=== PATIENT | male | born 1965 | race Caucasian/White ===

== ENCOUNTER 2017-10-20 22:10 | Inpatient (IN) | payer MEDICARE, MEDICAID ==
[~2017-10-20] VITALS: Ht 175.3 cm; Wt 107.8 kg
[~2017-10-20 22:10] MED LIST: ISON100L PO; NALT50TA6 PO; OLAN10TA22 PO; SIMV10TA2 PO
[2017-10-20 22:51] VITALS: BP 143/92
[2017-10-20] MEDS ORDERED: -PHARMACY VACCINE NOTE- MISC ONE ×2 (23:00)
[2017-10-20] MEDS ORDERED: PNEUMOCOCCAL VACCINE POLYVALENT 0.5 ML VIAL [PPSV23] IM ONE (23:00)
[2017-10-20] MEDS ORDERED: INFLUENZA VIRUS VACCINE QVS 2017-18 (3YR+)/PF 60 MCG/0.5 ML SYRINGE IM ONE (23:00)
[2017-10-21 00:37] VITALS: BP 142/81
[2017-10-21] MEDS: ZOLPIDEM TARTRATE 10 MG TABLET PO PRN (01:01)
[2017-10-21 08:20] LABS: BASOPHILS % (AUTO) 0.4 % (0.0-2.0); EOSINOPHILS % (AUTO) 1.8 % (1.0-6.0); HEMATOCRIT 43.1 % (41-53); HEMOGLOBIN 14.9 g/dL (13.5-17.5); LYMPHOCYTES # (AUTO) 3.5 K/uL (1.0-4.8); LYMPHOCYTES % (AUTO) 45.5 % (22.0-44.0); MEAN CORPUSCULAR HEMOGLOBIN 33.2 pg (26.0-34.0); MEAN CORPUSCULAR HGB CONC 34.6 G/dL (31.0-37.0); MEAN CORPUSCULAR VOLUME 96 fL (80-100); MONOCYTES # (AUTO) 0.6 K/uL (0.1-1.0); MONOCYTES % (AUTO) 7.8 % (2.0-9.0); NEUTROPHILS # (AUTO) 3.4 K/uL (1.8-7.7); NEUTROPHILS % (AUTO) 44.5 % (40.0-70.0); PLATELET COUNT (AUTO) 223 K/uL (150-450); RED BLOOD CELL COUNT(AUTO) 4.49 MIL/uL (4.50-5.90); RED CELL DISTRIBUTION WIDTH 13.3 % (11.5-14.5); WHITE BLOOD COUNT (AUTO) 7.7 K/uL (4.5-11.0)
[2017-10-21] MEDS: LORazepam 2 MG TABLET PO PRN ×2 (08:29→16:55)
[2017-10-21 08:30] VITALS: BP 131/77
[2017-10-21 08:39] LABS: ALANINE AMINOTRANSFERASE 35 U/L (12-78); ALBUMIN 3.4 g/dL (3.4-5.0); ANION GAP 8 mmol/L (8-16); ASPARTATE AMINOTRANSFERASE 20 U/L (15-37); BILIRUBIN,TOTAL 0.4 mg/dL (0.1-1.0); CALCIUM, TOTAL 8.8 mg/dL (8.8-10.5); CARBON DIOXIDE 29 mmol/L (22-29); CHLORIDE 104 mmol/L (98-107); CREATININE 1.08 mg/dL (0.60-1.30); GLOMERULAR FILTR. RATE CALC > 60 mL/min (>60); POTASSIUM 3.4 mmol/L (3.5-5.1); SODIUM SERUM 141 mmol/L (136-145); TOTAL PROTEIN, SERUM 5.8 g/dL (6.4-8.2); UREA NITROGEN, BLOOD 17 mg/dL (7-18)
[2017-10-21] MEDS ORDERED: ISONIAZID 300 MG TABLET PO SCH (09:00)
[2017-10-21] MEDS ORDERED: POTASSIUM CHLORIDE 20 MEQ ER TABLET PO ONE ×2 (09:45→18:30)
[2017-10-21] MEDS: PYRIDOXINE HCL 50 MG TABLET PO SCH (12:42)
[2017-10-21] MEDS: ISONIAZID 300 MG TABLET PO SCH (12:43)
[2017-10-21 16:19] VITALS: BP 129/80
[2017-10-21] MEDS: OLANZapine 10 MG RAPDIS TABLET PO SCH (20:33)
[2017-10-22 00:21] VITALS: BP 129/84
[2017-10-22] MEDS: PYRIDOXINE HCL 50 MG TABLET PO SCH (08:14)
[2017-10-22] MEDS: NALTREXONE HCL 50 MG TABLET PO SCH (08:15)
[2017-10-22] MEDS: ISONIAZID 300 MG TABLET PO SCH (08:15)
[2017-10-22] MEDS: LORazepam 2 MG TABLET PO PRN (08:20)
[2017-10-22 08:25] VITALS: BP 133/84
[2017-10-22 16:09] VITALS: BP 119/72
[2017-10-22] MEDS: OLANZapine 10 MG RAPDIS TABLET PO SCH (20:30)
[2017-10-22] MEDS: ZOLPIDEM TARTRATE 10 MG TABLET PO PRN (21:16)
[2017-10-23 00:53] VITALS: BP 129/72
[2017-10-23 06:22] VITALS: BP 140/98
[2017-10-23] MEDS: LORazepam 2 MG TABLET PO PRN ×2 (06:28→18:37)
[2017-10-23 08:34] VITALS: BP 105/66
[2017-10-23] MEDS: NALTREXONE HCL 50 MG TABLET PO SCH (09:06)
[2017-10-23] MEDS: ISONIAZID 300 MG TABLET PO SCH (09:06)
[2017-10-23] MEDS: PYRIDOXINE HCL 50 MG TABLET PO SCH (09:06)
[2017-10-23 16:16] VITALS: BP 134/87
[2017-10-23] MEDS: OLANZapine 10 MG RAPDIS TABLET PO SCH (20:18)
[2017-10-24 02:18] VITALS: BP 126/61
[2017-10-24 08:43] VITALS: BP 132/75
[2017-10-24 08:49] LABS: ANION GAP 8 mmol/L (8-16); CALCIUM, TOTAL 9.3 mg/dL (8.8-10.5); CARBON DIOXIDE 27 mmol/L (22-29); CHLORIDE 105 mmol/L (98-107); CHOL/HDL RATIO 4.8 (4.2-7.3); CREATINE KINASE, TOTAL 63 U/L (39-308); CREATININE 1.19 mg/dL (0.60-1.30); GLOMERULAR FILTR. RATE CALC > 60 mL/min (>60); POTASSIUM 3.4 mmol/L (3.5-5.1); SODIUM SERUM 140 mmol/L (136-145); UREA NITROGEN, BLOOD 14 mg/dL (7-18)
[2017-10-24] MEDS: PYRIDOXINE HCL 50 MG TABLET PO SCH (09:00)
[2017-10-24] MEDS: ISONIAZID 300 MG TABLET PO SCH (09:00)
[2017-10-24] MEDS: NALTREXONE HCL 50 MG TABLET PO SCH (09:00)
[2017-10-24] MEDS ORDERED: POTASSIUM CHLORIDE 20 MEQ ER TABLET PO ONE (14:00)
[2017-10-24 16:15] VITALS: BP 134/96
[2017-10-24] MEDS: OLANZapine 10 MG RAPDIS TABLET PO SCH (20:32)
[2017-10-24] MEDS: ZOLPIDEM TARTRATE 10 MG TABLET PO PRN (20:57)
[2017-10-25 00:27] VITALS: BP 124/83
[2017-10-25 08:00] VITALS: BP 127/69
[2017-10-25] MEDS: PYRIDOXINE HCL 50 MG TABLET PO SCH (09:20)
[2017-10-25] MEDS: NALTREXONE HCL 50 MG TABLET PO SCH (09:20)
[2017-10-25] MEDS: ISONIAZID 300 MG TABLET PO SCH (09:20)
[2017-10-25] MEDS: LORazepam 2 MG TABLET PO PRN (14:47)
[2017-10-25 16:43] VITALS: BP 115/66
[2017-10-25] MEDS: OLANZapine 10 MG RAPDIS TABLET PO SCH (20:34)
[2017-10-26 00:10] VITALS: BP 106/66
[2017-10-26 08:14] VITALS: BP 132/77
[2017-10-26 08:49] LABS: ANION GAP 7 mmol/L (8-16); CALCIUM, TOTAL 9.4 mg/dL (8.8-10.5); CARBON DIOXIDE 30 mmol/L (22-29); CHLORIDE 106 mmol/L (98-107); CREATINE KINASE, TOTAL 60 U/L (39-308); CREATININE 1.19 mg/dL (0.60-1.30); GLOMERULAR FILTR. RATE CALC > 60 mL/min (>60); POTASSIUM 4.8 mmol/L (3.5-5.1); SODIUM SERUM 143 mmol/L (136-145); UREA NITROGEN, BLOOD 14 mg/dL (7-18)
[2017-10-26] MEDS: NALTREXONE HCL 50 MG TABLET PO SCH (09:07)
[2017-10-26] MEDS: PYRIDOXINE HCL 50 MG TABLET PO SCH (09:07)
[2017-10-26] MEDS: ISONIAZID 300 MG TABLET PO SCH (09:07)
[2017-10-26 16:09] VITALS: BP 133/84
[2017-10-26] MEDS ORDERED: PYRI50 PO (17:06)
== END 2017-10-26 18:30 | disposition home or self-care (01) | DRG 885 ==
LOC: B2X 22:48
PROVIDERS: ADMIT Psychiatry & Neurology Child & Adolescent Psychiatry; ATTEND Psychiatry & Neurology Child & Adolescent Psychiatry
DX: F25.1 Schizoaffective disorder, depressive type (principal); R45.851 Suicidal ideations; E55.9 Vitamin D deficiency, unspecified; F15.90 Other stimulant use, unspecified, uncomplicated; E66.3 Overweight; E78.5 Hyperlipidemia, unspecified; E87.6 Hypokalemia; F41.9 Anxiety disorder, unspecified; I10 Essential (primary) hypertension; R76.11 Nonspecific reaction to tuberculin skin test without active tuberculosis; Z82.49 Family history of ischemic heart disease and other diseases of the circulatory system
CPT/HCPCS: 82306; 82607; 82746; 83735; 84132

== ENCOUNTER 2017-10-29 18:51 | Inpatient (IN) | payer MEDICARE, MEDICAID ==
[~2017-10-29] VITALS: Ht 175.3 cm; Wt 108.4 kg
[~2017-10-29 18:51] MED LIST changes: +PYRI50 PO; -SIMV10TA2 PO
[2017-10-29] MEDS ORDERED: ISON300 PO (19:21)
[2017-10-29] MEDS ORDERED: INFLUENZA VIRUS VACCINE QVS 2017-18 (3YR+)/PF 60 MCG/0.5 ML SYRINGE IM ONE (20:15)
[2017-10-29 20:52] VITALS: BP 139/88
[2017-10-29] MEDS: ZOLPIDEM TARTRATE 10 MG TABLET PO PRN (21:56)
[2017-10-30 02:05] VITALS: BP 123/81
[2017-10-30] MEDS: LORazepam 2 MG TABLET PO PRN ×2 (04:31→10:08)
[2017-10-30 08:41] LABS: HEMOGLOBIN A1C 5.9 % (4.5-6.2)
[2017-10-30 08:43] LABS: BASOPHILS % (AUTO) 0.4 % (0.0-2.0); EOSINOPHILS % (AUTO) 1.3 % (1.0-6.0); HEMATOCRIT 42.9 % (41-53); HEMOGLOBIN 14.5 g/dL (13.5-17.5); LYMPHOCYTES # (AUTO) 2.7 K/uL (1.0-4.8); LYMPHOCYTES % (AUTO) 46.2 % (22.0-44.0); MEAN CORPUSCULAR HEMOGLOBIN 32.9 pg (26.0-34.0); MEAN CORPUSCULAR HGB CONC 33.9 G/dL (31.0-37.0); MEAN CORPUSCULAR VOLUME 97 fL (80-100); MONOCYTES # (AUTO) 0.6 K/uL (0.1-1.0); MONOCYTES % (AUTO) 9.8 % (2.0-9.0); NEUTROPHILS # (AUTO) 2.5 K/uL (1.8-7.7); NEUTROPHILS % (AUTO) 42.3 % (40.0-70.0); PLATELET COUNT (AUTO) 217 K/uL (150-450); RED BLOOD CELL COUNT(AUTO) 4.43 MIL/uL (4.50-5.90); RED CELL DISTRIBUTION WIDTH 13.3 % (11.5-14.5); WHITE BLOOD COUNT (AUTO) 5.9 K/uL (4.5-11.0)
[2017-10-30 08:50] VITALS: BP 128/75
[2017-10-30 09:09] LABS: ALANINE AMINOTRANSFERASE 28 U/L (12-78); ALBUMIN 3.4 g/dL (3.4-5.0); ANION GAP 5 mmol/L (8-16); ASPARTATE AMINOTRANSFERASE 13 U/L (15-37); BILIRUBIN,TOTAL 0.3 mg/dL (0.1-1.0); CALCIUM, TOTAL 9.1 mg/dL (8.8-10.5); CARBON DIOXIDE 30 mmol/L (22-29); CHLORIDE 105 mmol/L (98-107); CREATININE 1.08 mg/dL (0.60-1.30); GLOMERULAR FILTR. RATE CALC > 60 mL/min (>60); POTASSIUM 4.3 mmol/L (3.5-5.1); SODIUM SERUM 140 mmol/L (136-145); THYROID STIMULATING HORMONE 1.37 uIU/mL (0.36-3.74); TOTAL PROTEIN, SERUM 6.3 g/dL (6.4-8.2); UREA NITROGEN, BLOOD 10 mg/dL (7-18)
[2017-10-30] MEDS: CHOLECALCIFEROL (VIT D3) 1,000 UNITS TABLET PO SCH (09:29)
[2017-10-30] MEDS: NICOTINE 21 MG/24 HOUR PATCH TD SCH (09:29)
[2017-10-30] MEDS: NALTREXONE HCL 50 MG TABLET PO SCH (14:49)
[2017-10-30] MEDS: PYRIDOXINE HCL 50 MG TABLET PO SCH (15:44)
[2017-10-30] MEDS: ISONIAZID 300 MG TABLET PO SCH (15:44)
[2017-10-30 16:03] VITALS: BP 135/81
[2017-10-30] MEDS: OLANZapine 10 MG TABLET PO SCH (20:30)
[2017-10-30] MEDS: ZOLPIDEM TARTRATE 10 MG TABLET PO PRN (21:14)
[2017-10-31] MEDS: LORazepam 2 MG TABLET PO PRN (07:20)
[2017-10-31 08:17] VITALS: BP 134/86
[2017-10-31] MEDS: NALTREXONE HCL 50 MG TABLET PO SCH (08:48)
[2017-10-31] MEDS: PYRIDOXINE HCL 50 MG TABLET PO SCH (08:48)
[2017-10-31] MEDS: CHOLECALCIFEROL (VIT D3) 1,000 UNITS TABLET PO SCH (08:48)
[2017-10-31] MEDS: NICOTINE 21 MG/24 HOUR PATCH TD SCH (08:49)
[2017-10-31] MEDS: ISONIAZID 300 MG TABLET PO SCH (08:49)
[2017-10-31 16:01] VITALS: BP 135/84
[2017-10-31] MEDS: OLANZapine 10 MG TABLET PO SCH (20:05)
[2017-11-01 03:07] VITALS: BP 118/76
[2017-11-01 08:18] VITALS: BP 110/60
[2017-11-01] MEDS: PYRIDOXINE HCL 50 MG TABLET PO SCH (09:47)
[2017-11-01] MEDS: CHOLECALCIFEROL (VIT D3) 1,000 UNITS TABLET PO SCH (09:47)
[2017-11-01] MEDS: ISONIAZID 300 MG TABLET PO SCH (09:47)
[2017-11-01] MEDS: NALTREXONE HCL 50 MG TABLET PO SCH (09:48)
[2017-11-01] MEDS: NICOTINE 21 MG/24 HOUR PATCH TD SCH (09:48)
[2017-11-01] MEDS ORDERED: VITAD1000 PO (11:00)
[2017-11-01] MEDS ORDERED: OLAN10TA3 PO (11:00)
== END 2017-11-01 12:10 | disposition home or self-care (01) | DRG 885 ==
LOC: B2X 19:22
PROVIDERS: ADMIT Psychiatry & Neurology Child & Adolescent Psychiatry; ATTEND Psychiatry & Neurology Child & Adolescent Psychiatry
DX: F25.9 Schizoaffective disorder, unspecified (principal); C85.90 Non-Hodgkin lymphoma, unspecified, unspecified site; E55.9 Vitamin D deficiency, unspecified; E78.5 Hyperlipidemia, unspecified; F32.9 Major depressive disorder, single episode, unspecified; G47.00 Insomnia, unspecified; I10 Essential (primary) hypertension; F15.90 Other stimulant use, unspecified, uncomplicated; Z59.0 Homelessness; F17.200 Nicotine dependence, unspecified, uncomplicated; Z91.14 Patient's other noncompliance with medication regimen
CPT/HCPCS: 83036; 84439; 84443; 87081

== ENCOUNTER 2018-12-02 19:46 | Emergency (ER) | payer MEDICARE, OTHER ==
[~2018-12-02] VITALS: Ht 175.3 cm; Wt 120.5 kg
[~2018-12-02 19:46] MED LIST changes: -ISON100L PO; -NALT50TA6 PO; -OLAN10TA22 PO; +OLAN10TA3 PO; -PYRI50 PO
[2018-12-02 20:19] LABS: BASOPHILS % (AUTO) 0.6 % (0.0-2.0); EOSINOPHILS % (AUTO) 1.1 % (1.0-6.0); HEMATOCRIT 41.8 % (41-53); HEMOGLOBIN 14.3 g/dL (13.5-17.5); LYMPHOCYTES # (AUTO) 2.9 K/uL (1.0-4.8); LYMPHOCYTES % (AUTO) 41.4 % (22.0-44.0); MEAN CORPUSCULAR HEMOGLOBIN 32.9 pg (26.0-34.0); MEAN CORPUSCULAR HGB CONC 34.3 G/dL (31.0-37.0); MEAN CORPUSCULAR VOLUME 96 fL (80-100); MONOCYTES # (AUTO) 0.7 K/uL (0.1-1.0); MONOCYTES % (AUTO) 9.5 % (2.0-9.0); NEUTROPHILS # (AUTO) 3.4 K/uL (1.8-7.7); NEUTROPHILS % (AUTO) 47.4 % (40.0-70.0); PLATELET COUNT (AUTO) 231 K/uL (150-450); RED BLOOD CELL COUNT(AUTO) 4.36 MIL/uL (4.50-5.90); RED CELL DISTRIBUTION WIDTH 13.1 % (11.5-14.5)
[2018-12-02 20:28] LABS: ANION GAP 5 mmol/L (8-16); CARBON DIOXIDE 31 mmol/L (22-29); CHLORIDE 107 mmol/L (98-107); CREATININE 1.08 mg/dL (0.60-1.30); GLOMERULAR FILTR. RATE CALC > 60 mL/min (>60); GLUCOSE,RANDOM 83 mg/dL (70-110); POTASSIUM 3.6 mmol/L (3.5-5.1); SODIUM SERUM 143 mmol/L (136-145); UREA NITROGEN, BLOOD 19 mg/dL (7-18)
[2018-12-02 20:33] LABS: ALANINE AMINOTRANSFERASE 29 U/L (12-78); ALBUMIN 3.7 g/dL (3.4-5.0); ALKALINE PHOSPHATASE 78 U/L (46-116); ASPARTATE AMINOTRANSFERASE 21 U/L (15-37); BILIRUBIN,TOTAL 0.2 mg/dL (0.1-1.0); TOTAL PROTEIN, SERUM 6.4 g/dL (6.4-8.2)
[2018-12-02 20:38] LABS: AMPHET/METH SCREEN,URINE POSITIVE (NEGATIVE); BARBITURATE SCREEN, URINE NEGATIVE (NEGATIVE); BENZODIAZEPINES SCREEN,URINE NEGATIVE (NEGATIVE); CANNABINOID SCREEN,URINE NEGATIVE (NEGATIVE); COCAINE SCREEN,URINE NEGATIVE (NEGATIVE); METHADONE SCREEN, URINE NEGATIVE (NEGATIVE); OPIATE SCREEN,URINE NEGATIVE (NEGATIVE)
[2018-12-02 20:45] LABS: PHENCYCLIDINE SCREEN,URINE NEGATIVE (NEGATIVE)
[2018-12-02 22:10] VITALS: BP 136/80
== END 2018-12-02 22:11 | disposition home or self-care (01) ==
LOC: EMS 19:48
DX: F19.10 Other psychoactive substance abuse, uncomplicated (principal); E78.00 Pure hypercholesterolemia, unspecified; I10 Essential (primary) hypertension; F17.210 Nicotine dependence, cigarettes, uncomplicated; Z59.0 Homelessness; Z79.899 Other long term (current) drug therapy
CPT/HCPCS: 36415; 80053; 80307; 85025; 99283; G0480

== ENCOUNTER 2018-12-29 22:31 | Inpatient (IN) | payer MEDICARE, MEDICAID ==
[~2018-12-29] VITALS: Ht 175.3 cm; Wt 112.5 kg
[2018-12-29 22:57] VITALS: BP 139/82
[2018-12-29] MEDS ORDERED: PNEUMOCOCCAL VACCINE POLYVALENT 0.5 ML VIAL [PPSV23] IM ONE (23:15)
[2018-12-29] MEDS ORDERED: HALOPERIDOL 5 MG TABLET PO PRN (23:15)
[2018-12-29] MEDS ORDERED: LORazepam 2 MG TABLET PO PRN (23:15)
[2018-12-29] MEDS ORDERED: -PHARMACY VACCINE NOTE- MISC ONE (23:15)
[2018-12-30] MEDS: ZOLPIDEM TARTRATE 10 MG TABLET PO PRN (00:04)
[2018-12-30 00:33] VITALS: BP 139/78
[2018-12-30 00:39] VITALS: BP 139/78
[2018-12-30] MEDS ORDERED: ACETAMINOPHEN 325 MG TABLET PO PRN (06:30)
[2018-12-30] MEDS ORDERED: PETROLATUM,WHITE 71 GM JELLY TP PRN (06:30)
[2018-12-30] MEDS ORDERED: IBUPROFEN 400 MG TABLET PO PRN (06:30)
[2018-12-30] MEDS ORDERED: MAGNESIUM HYDROXIDE SUSPENSION 30 ML UDCUP PO PRN (06:30)
[2018-12-30] MEDS ORDERED: NICOTINE 14 MG/24 HOUR PATCH TD PRN (06:30)
[2018-12-30] MEDS ORDERED: LOPERAMIDE HCL 2 MG CAPSULE PO PRN (06:30)
[2018-12-30] MEDS ORDERED: CloNIDine HCL 0.1 MG TABLET PO PRN (06:30)
[2018-12-30] MEDS ORDERED: ONDANSETRON HCL 4 MG TABLET PO PRN (06:30)
[2018-12-30] MEDS ORDERED: MAG HYDROX/AL HYDROX/SIMETH ES 30 ML SUSPENSION UDCUP PO PRN (06:30)
[2018-12-30] MEDS ORDERED: DOCUSATE SODIUM 100 MG CAPSULE PO PRN (06:30)
[2018-12-30] MEDS ORDERED: ALBUTEROL SULFATE HFA 90 MCG/PUFF 8 GM INHALER IH PRN (06:30)
[2018-12-30] MEDS ORDERED: GuaiFENesin/D-METHORPHAN [SUGAR-FREE] 200-20MG/10 ML SYRUP UDCUP PO PRN (06:30)
[2018-12-30 07:54] LABS: BASOPHILS % (AUTO) 0.4 % (0.0-2.0); EOSINOPHILS % (AUTO) 2.2 % (1.0-6.0); HEMATOCRIT 41.8 % (41-53); HEMOGLOBIN 14.4 g/dL (13.5-17.5); LYMPHOCYTES # (AUTO) 2.9 K/uL (1.0-4.8); LYMPHOCYTES % (AUTO) 49.2 % (22.0-44.0); MEAN CORPUSCULAR HEMOGLOBIN 33.1 pg (26.0-34.0); MEAN CORPUSCULAR HGB CONC 34.6 G/dL (31.0-37.0); MEAN CORPUSCULAR VOLUME 96 fL (80-100); MONOCYTES # (AUTO) 0.7 K/uL (0.1-1.0); MONOCYTES % (AUTO) 11.9 % (2.0-9.0); NEUTROPHILS # (AUTO) 2.1 K/uL (1.8-7.7); NEUTROPHILS % (AUTO) 36.3 % (40.0-70.0); PLATELET COUNT (AUTO) 228 K/uL (150-450); RED BLOOD CELL COUNT(AUTO) 4.37 MIL/uL (4.50-5.90); RED CELL DISTRIBUTION WIDTH 13.2 % (11.5-14.5)
[2018-12-30 08:04] VITALS: BP 138/78
[2018-12-30 08:33] LABS: ALANINE AMINOTRANSFERASE 39 U/L (12-78); ALBUMIN 3.4 g/dL (3.4-5.0); ALKALINE PHOSPHATASE 79 U/L (46-116); ANION GAP 5 mmol/L (8-16); ASPARTATE AMINOTRANSFERASE 27 U/L (15-37); BILIRUBIN,TOTAL 0.3 mg/dL (0.1-1.0); CALCIUM, TOTAL 8.5 mg/dL (8.8-10.5); CARBON DIOXIDE 30 mmol/L (22-29); CHLORIDE 105 mmol/L (98-107); CHOL/HDL RATIO 4.6 (4.2-7.3); CHOLESTEROL 178 mg/dL (131-200); CREATININE 1.13 mg/dL (0.60-1.30); FREE T4 (FREE THYROXINE) 0.96 ng/dL (0.76-1.46); GLOMERULAR FILTR. RATE CALC > 60 mL/min (>60); GLUCOSE,RANDOM 95 mg/dL (70-110); HDL CHOLESTEROL 39 mg/dL (40-60); LDL CHOL (CALC.) 123 mg/dL (0-130); POTASSIUM 4.1 mmol/L (3.5-5.1); SODIUM SERUM 140 mmol/L (136-145); THYROID STIMULATING HORMONE 1.21 uIU/mL (0.36-3.74); TOTAL PROTEIN, SERUM 5.8 g/dL (6.4-8.2); TRIGLYCERIDES 78 mg/dL (15-150); UREA NITROGEN, BLOOD 15 mg/dL (7-18)
[2018-12-30 08:35] LABS: HEMOGLOBIN A1C 5.9 % (4.5-6.2)
[2018-12-30 16:11] VITALS: BP 140/91
[2018-12-30] MEDS: OLANZapine 10 MG TABLET PO SCH (20:26)
[2018-12-31 04:27] VITALS: BP 119/84
[2018-12-31 08:26] VITALS: BP 131/79
[2018-12-31 16:14] VITALS: BP 134/76
[2018-12-31] MEDS: OLANZapine 10 MG TABLET PO SCH (20:21)
[2019-01-01 03:41] VITALS: BP 12/78
[2019-01-01 08:00] VITALS: BP 131/75
[2019-01-01 19:07] VITALS: BP 130/78
[2019-01-01] MEDS: OLANZapine 10 MG TABLET PO SCH (20:35)
[2019-01-02 00:41] VITALS: BP 126/72
[2019-01-02 08:14] VITALS: BP_SYST 128
[2019-01-02 16:18] VITALS: BP 145/83
[2019-01-02] MEDS: OLANZapine 10 MG TABLET PO SCH (20:34)
[2019-01-02] MEDS: ZOLPIDEM TARTRATE 10 MG TABLET PO PRN (21:14)
[2019-01-03 02:58] VITALS: BP 123/75
[2019-01-03 08:23] VITALS: BP 133/73
== END 2019-01-03 09:45 | disposition home or self-care (01) | DRG 885 ==
LOC: B2X 23:30 → UNDOADMIN 23:30 → B2X 12-30 23:30
PROVIDERS: ADMIT Psychiatry & Neurology Psychiatry; ATTEND Psychiatry & Neurology Psychiatry
DX: F25.0 Schizoaffective disorder, bipolar type (principal); R45.851 Suicidal ideations; E55.9 Vitamin D deficiency, unspecified; E78.5 Hyperlipidemia, unspecified; F10.10 Alcohol abuse, uncomplicated; F17.200 Nicotine dependence, unspecified, uncomplicated; F19.90 Other psychoactive substance use, unspecified, uncomplicated; F41.9 Anxiety disorder, unspecified; I10 Essential (primary) hypertension; R76.11 Nonspecific reaction to tuberculin skin test without active tuberculosis; Z71.41 Alcohol abuse counseling and surveillance of alcoholic; Z71.6 Tobacco abuse counseling; Z59.0 Homelessness; Z86.11 Personal history of tuberculosis
CPT/HCPCS: 83036; 84439; 84443; 87081; 90732

== ENCOUNTER 2019-10-26 12:47 | Inpatient (IN) | payer MEDICARE, MEDICAID ==
[~2019-10-26] VITALS: Ht 175.3 cm; Wt 114.0 kg
[2019-10-26 14:51] VITALS: BP 141/79
[2019-10-26] MEDS ORDERED: HALOPERIDOL 5 MG TABLET PO PRN (15:15)
[2019-10-26] MEDS ORDERED: ZOLPIDEM TARTRATE 10 MG TABLET PO PRN (15:15)
[2019-10-26] MEDS ORDERED: INFLUENZA VIRUS VACCINE QVS 2019-20 (3YR+)/PF 60 MCG/0.5 ML SYRINGE IM ONE (16:45)
[2019-10-26 17:53] VITALS: BP 120/72
[2019-10-26] MEDS: LORazepam 2 MG TABLET PO PRN ×2 (19:43→19:56)
[2019-10-27 00:08] VITALS: BP 106/73
[2019-10-27 08:07] VITALS: BP 119/74
[2019-10-27 08:22] LABS: BASOPHILS % (AUTO) 0.4 % (0.0-2.0); EOSINOPHILS % (AUTO) 1.1 % (1.0-6.0); HEMATOCRIT 44.5 % (41-53); LYMPHOCYTES # (AUTO) 2.6 K/uL (1.0-4.8); LYMPHOCYTES % (AUTO) 44.5 % (22.0-44.0); MEAN CORPUSCULAR HEMOGLOBIN 32.6 pg (26.0-34.0); MEAN CORPUSCULAR HGB CONC 33.7 G/dL (31.0-37.0); MEAN CORPUSCULAR VOLUME 97 fL (80-100); MONOCYTES # (AUTO) 0.6 K/uL (0.1-1.0); MONOCYTES % (AUTO) 9.8 % (2.0-9.0); NEUTROPHILS # (AUTO) 2.6 K/uL (1.8-7.7); NEUTROPHILS % (AUTO) 44.2 % (40.0-70.0); PLATELET COUNT (AUTO) 244 K/uL (150-450); RED CELL DISTRIBUTION WIDTH 13.6 % (11.5-14.5)
[2019-10-27 08:29] LABS: BILIRUBIN,URINE NEGATIVE (NEGATIVE); GLUCOSE, URINE (UA) NEGATIVE (NEGATIVE); KETONES,URINE NEGATIVE (NEGATIVE); LEUKOCYTE ESTERASE ,URINE NEGATIVE (NEGATIVE); NITRATE,URINE NEGATIVE (NEGATIVE); OCCULT BLOOD,URINE NEGATIVE (NEGATIVE); PROTEIN,URINE NEGATIVE (NEGATIVE)
[2019-10-27 08:35] LABS: APPEARANCE,URINE TURBID (CLEAR)
[2019-10-27 08:36] LABS: AMPHET/METH SCREEN,URINE POSITIVE (NEGATIVE); BARBITURATE SCREEN, URINE NEGATIVE (NEGATIVE); BENZODIAZEPINES SCREEN,URINE NEGATIVE (NEGATIVE); CANNABINOID SCREEN,URINE NEGATIVE (NEGATIVE); COCAINE SCREEN,URINE NEGATIVE (NEGATIVE); METHADONE SCREEN, URINE NEGATIVE (NEGATIVE); OPIATE SCREEN,URINE NEGATIVE (NEGATIVE); PHENCYCLIDINE SCREEN,URINE NEGATIVE (NEGATIVE)
[2019-10-27 08:36] LABS: HEMOGLOBIN A1C 5.5 % (4.5-6.2)
[2019-10-27 08:49] LABS: ALBUMIN 3.5 g/dL (3.4-5.0); BILIRUBIN,TOTAL 0.6 mg/dL (0.1-1.0); CALCIUM, TOTAL 8.5 mg/dL (8.8-10.5); CHOL/HDL RATIO 5.4 (4.2-7.3); CREATININE 1.33 mg/dL (0.60-1.30); FREE T4 (FREE THYROXINE) 1.27 ng/dL (0.76-1.46); POTASSIUM 3.8 mmol/L (3.5-5.1); THYROID STIMULATING HORMONE 1.77 uIU/mL (0.36-3.74); TOTAL PROTEIN, SERUM 6.3 g/dL (6.4-8.2)
[2019-10-27] MEDS ORDERED: BENZOCAINE/MENTHOL LOZENGE MM PRN (16:00)
[2019-10-27] MEDS ORDERED: PETROLATUM,WHITE 28 GM JELLY TP PRN (16:00)
[2019-10-27] MEDS ORDERED: MAG HYDROX/AL HYDROX/SIMETH ES 30 ML SUSPENSION UDCUP PO PRN (16:00)
[2019-10-27] MEDS ORDERED: MAGNESIUM HYDROXIDE SUSPENSION 30 ML UDCUP PO PRN (16:00)
[2019-10-27] MEDS ORDERED: LOPERAMIDE HCL 2 MG CAPSULE PO PRN (16:00)
[2019-10-27] MEDS ORDERED: BACITRACIN 28.4 GM OINTMENT TP PRN (16:00)
[2019-10-27] MEDS ORDERED: ONDANSETRON HCL 4 MG TABLET PO PRN (16:00)
[2019-10-27] MEDS ORDERED: DOCUSATE SODIUM 100 MG CAPSULE PO PRN (16:00)
[2019-10-27] MEDS ORDERED: ACETAMINOPHEN 325 MG TABLET PO PRN (16:00)
[2019-10-27] MEDS ORDERED: IBUPROFEN 600 MG TABLET PO PRN (16:00)
[2019-10-27] MEDS ORDERED: ALBUTEROL SULFATE HFA 90 MCG/PUFF 8 GM INHALER IH PRN (16:00)
[2019-10-27] MEDS ORDERED: OMEPRAZOLE 20 MG CAPSULE PO PRN (16:00)
[2019-10-27] MEDS ORDERED: CloNIDine HCL 0.1 MG TABLET PO PRN (16:00)
[2019-10-27 16:11] VITALS: BP 113/60
[2019-10-27] MEDS: LORazepam 2 MG TABLET PO PRN (16:46)
[2019-10-28 06:19] VITALS: BP 109/69
[2019-10-28 08:33] VITALS: BP 109/58
[2019-10-28 16:04] VITALS: BP 131/71
[2019-10-28] MEDS: OLANZapine 10 MG TABLET PO SCH (20:04)
[2019-10-29 06:10] VITALS: BP 127/65
[2019-10-29 08:19] VITALS: BP 122/90
[2019-10-29 16:07] VITALS: BP 140/86
[2019-10-29] MEDS: LORazepam 2 MG TABLET PO PRN (17:33)
[2019-10-29] MEDS: OLANZapine 10 MG TABLET PO SCH (20:34)
[2019-10-30 00:10] VITALS: BP 111/73
[2019-10-30] MEDS: NICOTINE 21 MG/24 HOUR PATCH TD SCH (08:18)
[2019-10-30 08:28] VITALS: BP 138/80
[2019-10-30] MEDS: LORazepam 2 MG TABLET PO PRN (14:25)
[2019-10-30 16:52] VITALS: BP 127/86
[2019-10-30] MEDS: OLANZapine 10 MG TABLET PO SCH (20:46)
[2019-10-31 05:36] VITALS: BP 133/83
[2019-10-31] MEDS: NICOTINE 21 MG/24 HOUR PATCH TD SCH (08:49)
[2019-10-31 16:24] VITALS: BP 128/90
[2019-10-31] MEDS: LORazepam 2 MG TABLET PO PRN (19:07)
[2019-10-31] MEDS: OLANZapine 10 MG TABLET PO SCH (20:10)
[2019-11-01 00:10] VITALS: BP 124/63
[2019-11-01 08:16] VITALS: BP 134/90
[2019-11-01] MEDS: NICOTINE 21 MG/24 HOUR PATCH TD SCH (08:24)
[2019-11-01] MEDS: LORazepam 2 MG TABLET PO PRN (09:50)
[2019-11-01] MEDS ORDERED: OLAN10TA3 PO (12:38)
== END 2019-11-01 14:45 | disposition home or self-care (01) | DRG 885 ==
LOC: B2X 15:06
PROVIDERS: ADMIT Psychiatry & Neurology Psychiatry; ATTEND Psychiatry & Neurology Psychiatry
DX: F25.1 Schizoaffective disorder, depressive type (principal); F15.10 Other stimulant abuse, uncomplicated; E55.9 Vitamin D deficiency, unspecified; E78.5 Hyperlipidemia, unspecified; F10.10 Alcohol abuse, uncomplicated; F17.200 Nicotine dependence, unspecified, uncomplicated; I10 Essential (primary) hypertension; Z59.0 Homelessness; Z86.15 Personal history of latent tuberculosis infection
CPT/HCPCS: 80307; 83036; 84439; 84443

== ENCOUNTER 2019-11-10 17:04 | Inpatient (IN) | payer MEDICARE, MEDICAID ==
[~2019-11-10] VITALS: Ht 175.3 cm; Wt 112.5 kg
[2019-11-10] MEDS ORDERED: HALOPERIDOL 5 MG TABLET PO PRN (17:30)
[2019-11-10] MEDS ORDERED: ZOLPIDEM TARTRATE 10 MG TABLET PO PRN (17:30)
[2019-11-10] MEDS ORDERED: PNEUMOCOCCAL VACCINE POLYVALENT 0.5 ML VIAL [PPSV23] IM ONE (18:15)
[2019-11-10 20:09] VITALS: BP 138/85
[2019-11-10] MEDS ORDERED: NICOTINE 21 MG/24 HOUR PATCH TD ONE (20:30)
[2019-11-10] MEDS ORDERED: PERMETHRIN 5% 60 GM CREAM TP ONE (20:30)
[2019-11-11] MEDS ORDERED: BENZOCAINE/MENTHOL LOZENGE MM PRN (06:45)
[2019-11-11] MEDS ORDERED: LOPERAMIDE HCL 2 MG CAPSULE PO PRN (06:45)
[2019-11-11] MEDS ORDERED: CloNIDine HCL 0.1 MG TABLET PO PRN (06:45)
[2019-11-11] MEDS ORDERED: MAG HYDROX/AL HYDROX/SIMETH ES 30 ML SUSPENSION UDCUP PO PRN (06:45)
[2019-11-11] MEDS ORDERED: ACETAMINOPHEN 325 MG TABLET PO PRN (06:45)
[2019-11-11] MEDS ORDERED: ALBUTEROL SULFATE HFA 90 MCG/PUFF 8 GM INHALER IH PRN (06:45)
[2019-11-11] MEDS ORDERED: MAGNESIUM HYDROXIDE SUSPENSION 30 ML UDCUP PO PRN (06:45)
[2019-11-11] MEDS ORDERED: BACITRACIN 28.4 GM OINTMENT TP PRN (06:45)
[2019-11-11] MEDS ORDERED: DOCUSATE SODIUM 100 MG CAPSULE PO PRN (06:45)
[2019-11-11] MEDS ORDERED: ONDANSETRON HCL 4 MG TABLET PO PRN (06:45)
[2019-11-11] MEDS ORDERED: IBUPROFEN 600 MG TABLET PO PRN (06:45)
[2019-11-11] MEDS ORDERED: PETROLATUM,WHITE 28 GM JELLY TP PRN (06:45)
[2019-11-11] MEDS ORDERED: OMEPRAZOLE 20 MG CAPSULE PO PRN (06:45)
[2019-11-11 07:32] LABS: BASOPHILS % (AUTO) 0.6 % (0.0-2.0); EOSINOPHILS % (AUTO) 1.3 % (1.0-6.0); HEMATOCRIT 44.6 % (41-53); HEMOGLOBIN 15.3 g/dL (13.5-17.5); LYMPHOCYTES # (AUTO) 2.2 K/uL (1.0-4.8); LYMPHOCYTES % (AUTO) 38.9 % (22.0-44.0); MEAN CORPUSCULAR HEMOGLOBIN 32.8 pg (26.0-34.0); MEAN CORPUSCULAR HGB CONC 34.2 G/dL (31.0-37.0); MEAN CORPUSCULAR VOLUME 96 fL (80-100); MONOCYTES # (AUTO) 0.5 K/uL (0.1-1.0); MONOCYTES % (AUTO) 9.1 % (2.0-9.0); NEUTROPHILS # (AUTO) 2.9 K/uL (1.8-7.7); NEUTROPHILS % (AUTO) 50.1 % (40.0-70.0); PLATELET COUNT (AUTO) 264 K/uL (150-450); RED BLOOD CELL COUNT(AUTO) 4.65 MIL/uL (4.50-5.90); RED CELL DISTRIBUTION WIDTH 13.1 % (11.5-14.5)
[2019-11-11 07:46] LABS: HEMOGLOBIN A1C 5.7 % (4.5-6.2)
[2019-11-11 08:01] LABS: ALANINE AMINOTRANSFERASE 37 U/L (12-78); ALKALINE PHOSPHATASE 90 U/L (46-116); ANION GAP 10 mmol/L (8-16); ASPARTATE AMINOTRANSFERASE 29 U/L (15-37); BILIRUBIN,TOTAL 0.6 mg/dL (0.1-1.0); CALCIUM, TOTAL 8.7 mg/dL (8.8-10.5); CARBON DIOXIDE 26 mmol/L (22-29); CHLORIDE 101 mmol/L (98-107); CHOL/HDL RATIO 4.4 (4.2-7.3); CHOLESTEROL 203 mg/dL (131-200); CREATININE 1.16 mg/dL (0.60-1.30); FREE T4 (FREE THYROXINE) 1.39 ng/dL (0.76-1.46); GLOMERULAR FILTR. RATE CALC > 60 mL/min (>60); GLUCOSE,RANDOM 106 mg/dL (70-110); HDL CHOLESTEROL 46 mg/dL (40-60); LDL CHOL (CALC.) 142 mg/dL (0-130); SODIUM SERUM 137 mmol/L (136-145); THYROID STIMULATING HORMONE 2.14 uIU/mL (0.36-3.74); TRIGLYCERIDES 75 mg/dL (15-150); UREA NITROGEN, BLOOD 9 mg/dL (7-18)
[2019-11-11 08:03] VITALS: BP 136/70
[2019-11-11 08:11] LABS: TOTAL PROTEIN, SERUM 6.5 g/dL (6.4-8.2)
[2019-11-11] MEDS: NICOTINE 21 MG/24 HOUR PATCH TD SCH (09:07)
[2019-11-11] MEDS ORDERED: PERMETHRIN 5% 60 GM CREAM TP ONE (10:30)
[2019-11-11] MEDS: LORazepam 2 MG TABLET PO PRN ×2 (10:52→17:53)
[2019-11-11 16:01] VITALS: BP 141/91
[2019-11-11] MEDS: OLANZapine 10 MG TABLET PO SCH (20:30)
[2019-11-12 01:40] VITALS: BP 122/83
[2019-11-12 08:13] VITALS: BP 129/83
[2019-11-12] MEDS: NICOTINE 21 MG/24 HOUR PATCH TD SCH (08:42)
[2019-11-12] MEDS: LORazepam 2 MG TABLET PO PRN (13:34)
[2019-11-12 16:08] VITALS: BP 135/85
[2019-11-12] MEDS: OLANZapine 10 MG TABLET PO SCH (20:06)
[2019-11-13 06:49] VITALS: BP 123/71
[2019-11-13 08:20] VITALS: BP 132/82
[2019-11-13] MEDS: NICOTINE 21 MG/24 HOUR PATCH TD SCH (08:50)
[2019-11-13 16:03] VITALS: BP 131/91
[2019-11-13] MEDS: OLANZapine 10 MG TABLET PO SCH (20:27)
[2019-11-14 06:48] VITALS: BP 128/73
[2019-11-14 08:04] VITALS: BP 130/80
[2019-11-14] MEDS: NICOTINE 21 MG/24 HOUR PATCH TD SCH (09:00)
== END 2019-11-14 13:55 | disposition still patient (30) | DRG 885 ==
LOC: B2X 17:25
PROVIDERS: ATTEND Psychiatry & Neurology Psychiatry
DX: F25.1 Schizoaffective disorder, depressive type (principal); R45.851 Suicidal ideations; E78.5 Hyperlipidemia, unspecified; R21 Rash and other nonspecific skin eruption; E78.00 Pure hypercholesterolemia, unspecified; E55.9 Vitamin D deficiency, unspecified; F19.10 Other psychoactive substance abuse, uncomplicated; G47.00 Insomnia, unspecified; K59.00 Constipation, unspecified; F41.9 Anxiety disorder, unspecified; I10 Essential (primary) hypertension; Z59.0 Homelessness; Z86.15 Personal history of latent tuberculosis infection; Z87.891 Personal history of nicotine dependence; Z28.21 Immunization not carried out because of patient refusal; Z79.899 Other long term (current) drug therapy
CPT/HCPCS: 83036; 84439; 84443; 87081

== ENCOUNTER 2021-08-29 16:16 | Inpatient (IN) | payer MEDICARE, MEDICAID ==
[~2021-08-29] VITALS: Ht 175.3 cm; Wt 108.6 kg
[~2021-08-29 16:16] MED LIST changes: +AMLO2.5T96 PO; +FINA-27 PO; -OLAN10TA3 PO; +OLAN7.5T18 PO; +OLAN7.5T22 PO; +TAMS-13 PO
[2021-08-29 18:44] LABS: GLUCOMETER DEV NAME(LOC) POC.BV
[2021-08-29] MEDS ORDERED: ZOLPIDEM TARTRATE 10 MG TABLET PO PRN (19:00)
[2021-08-29] MEDS ORDERED: HALOPERIDOL 5 MG TABLET PO PRN (19:00)
[2021-08-29] MEDS ORDERED: PNEUMOCOCCAL VACCINE POLYVALENT 0.5 ML VIAL [PPSV23] IM. ONE (19:30)
[2021-08-29] MEDS ORDERED: INFLUENZA VIRUS VACCINE QVS 2021-22 (6MO+)/PF 60 MCG/0.5 ML SYRINGE IM. ONE (19:30)
[2021-08-29 20:57] VITALS: BP 145/92
[2021-08-29] MEDS: OLANZapine 10 MG TABLET PO SCH (21:47)
[2021-08-30 00:12] VITALS: BP 138/86
[2021-08-30 04:19] VITALS: BP 134/68
[2021-08-30 07:29] LABS: BASOPHILS % (AUTO) 0.4 % (0.0-2.0); EOSINOPHILS % (AUTO) 1.9 % (1.0-6.0); HEMATOCRIT 43.3 % (41-53); HEMOGLOBIN 14.7 g/dL (13.5-17.5); LYMPHOCYTES # (AUTO) 2.3 K/uL (1.0-4.8); LYMPHOCYTES % (AUTO) 39.3 % (22.0-44.0); MEAN CORPUSCULAR HEMOGLOBIN 32.7 pg (26.0-34.0); MEAN CORPUSCULAR VOLUME 96 fL (80-100); MONOCYTES # (AUTO) 0.5 K/uL (0.1-1.0); MONOCYTES % (AUTO) 9.1 % (2.0-9.0); NEUTROPHILS # (AUTO) 2.9 K/uL (1.8-7.7); NEUTROPHILS % (AUTO) 49.3 % (40.0-70.0); PLATELET COUNT (AUTO) 250 K/uL (150-450); RED CELL DISTRIBUTION WIDTH 13.4 % (11.5-14.5)
[2021-08-30 07:55] LABS: HEMOGLOBIN A1C 5.6 % (3.8-5.6)
[2021-08-30 08:13] LABS: ALBUMIN 3.6 g/dL (3.4-5.0); BILIRUBIN,TOTAL 0.4 mg/dL (0.1-1.0); CALCIUM, TOTAL 8.5 mg/dL (8.8-10.5); CHOL/HDL RATIO 4.5 (4.2-7.3); CREATININE 1.29 mg/dL (0.60-1.30); FREE T4 (FREE THYROXINE) 1.33 ng/dL (0.76-1.46); POTASSIUM 3.6 mmol/L (3.5-5.1); THYROID STIMULATING HORMONE 1.27 uIU/mL (0.36-3.74); TOTAL PROTEIN, SERUM 6.5 g/dL (6.4-8.2)
[2021-08-30 08:32] VITALS: BP 142/88
[2021-08-30] MEDS ORDERED: TAMSULOSIN HCL 0.4 MG CAPSULE PO SCH (10:15)
[2021-08-30] MEDS ORDERED: AmLODIPine BESYLATE 2.5 MG TABLET PO SCH (10:15)
[2021-08-30] MEDS: NICOTINE 14 MG/24 HOUR PATCH TD SCH (10:46)
[2021-08-30] MEDS ORDERED: NICOTINE 14 MG/24 HOUR PATCH TD PRN (11:45)
[2021-08-30] MEDS ORDERED: MAG HYDROX/AL HYDROX/SIMETH ES 30 ML SUSPENSION UDCUP PO PRN (11:45)
[2021-08-30] MEDS ORDERED: ACETAMINOPHEN 325 MG TABLET PO PRN (11:45)
[2021-08-30] MEDS ORDERED: ALBUTEROL SULFATE HFA 90 MCG/PUFF 8 GM INHALER IH PRN (11:45)
[2021-08-30] MEDS ORDERED: PETROLATUM,WHITE 28 GM JELLY TP PRN (11:45)
[2021-08-30] MEDS ORDERED: ONDANSETRON HCL 4 MG TABLET PO PRN (11:45)
[2021-08-30] MEDS ORDERED: GuaiFENesin/D-METHORPHAN [SUGAR-FREE] 200-20MG/10 ML SYRUP UDCUP PO PRN (11:45)
[2021-08-30] MEDS ORDERED: LOPERAMIDE HCL 2 MG CAPSULE PO PRN (11:45)
[2021-08-30] MEDS ORDERED: IBUPROFEN 400 MG TABLET PO PRN (11:45)
[2021-08-30] MEDS ORDERED: DOCUSATE SODIUM 100 MG CAPSULE PO PRN (11:45)
[2021-08-30] MEDS ORDERED: MAGNESIUM HYDROXIDE SUSPENSION 30 ML UDCUP PO PRN (11:45)
[2021-08-30] MEDS ORDERED: CloNIDine HCL 0.1 MG TABLET PO PRN (11:45)
[2021-08-30] MEDS: LORazepam 2 MG TABLET PO PRN (13:32)
[2021-08-30 16:07] VITALS: BP 109/72
[2021-08-30] MEDS: TAMSULOSIN HCL 0.4 MG CAPSULE PO SCH (16:12)
[2021-08-30] MEDS: FINASTERIDE 5 MG TABLET PO SCH (20:15)
[2021-08-30] MEDS: OLANZapine 10 MG TABLET PO SCH (20:15)
[2021-08-30] MEDS ORDERED: FINASTERIDE 5 MG TABLET PO SCH (21:00)
[2021-08-31 00:40] VITALS: BP 108/66
[2021-08-31] MEDS: TAMSULOSIN HCL 0.4 MG CAPSULE PO SCH ×2 (08:12→16:33)
[2021-08-31] MEDS: NICOTINE 14 MG/24 HOUR PATCH TD SCH (08:12)
[2021-08-31] MEDS: AmLODIPine BESYLATE 2.5 MG TABLET PO SCH (08:12)
[2021-08-31 08:15] VITALS: BP 126/89
[2021-08-31 17:45] VITALS: BP 125/77
[2021-08-31] MEDS: FINASTERIDE 5 MG TABLET PO SCH (20:28)
[2021-08-31] MEDS: OLANZapine 10 MG TABLET PO SCH (20:29)
[2021-09-01 06:42] VITALS: BP 118/70
[2021-09-01 07:43] LABS: APPEARANCE,URINE CLEAR (CLEAR); BILIRUBIN,URINE NEGATIVE (NEGATIVE); GLUCOSE, URINE (UA) NEGATIVE (NEGATIVE); KETONES,URINE NEGATIVE (NEGATIVE); LEUKOCYTE ESTERASE ,URINE NEGATIVE (NEGATIVE); NITRATE,URINE NEGATIVE (NEGATIVE); OCCULT BLOOD,URINE NEGATIVE (NEGATIVE); PH,URINE 6.5 (5.0-8.0); PROTEIN,URINE NEGATIVE (NEGATIVE); UROBILINOGEN,URINE 0.2 mg/dL (<=1.0)
[2021-09-01 07:52] LABS: AMPHET/METH SCREEN,URINE POSITIVE (NEGATIVE); BARBITURATE SCREEN, URINE NEGATIVE (NEGATIVE); BENZODIAZEPINES SCREEN,URINE NEGATIVE (NEGATIVE); CANNABINOID SCREEN,URINE NEGATIVE (NEGATIVE); COCAINE SCREEN,URINE NEGATIVE (NEGATIVE); METHADONE SCREEN, URINE NEGATIVE (NEGATIVE); OPIATE SCREEN,URINE NEGATIVE (NEGATIVE)
[2021-09-01 07:53] LABS: PHENCYCLIDINE SCREEN,URINE NEGATIVE (NEGATIVE)
[2021-09-01 08:04] VITALS: BP 140/90
[2021-09-01] MEDS: AmLODIPine BESYLATE 2.5 MG TABLET PO SCH (08:23)
[2021-09-01] MEDS: TAMSULOSIN HCL 0.4 MG CAPSULE PO SCH ×2 (08:23→16:30)
[2021-09-01] MEDS: NICOTINE 14 MG/24 HOUR PATCH TD SCH (08:23)
[2021-09-01 16:03] VITALS: BP 133/87
[2021-09-01] MEDS: FINASTERIDE 5 MG TABLET PO SCH (20:31)
[2021-09-01] MEDS: OLANZapine 10 MG TABLET PO SCH (20:31)
[2021-09-02 06:16] VITALS: BP 150/90
[2021-09-02 08:19] VITALS: BP 140/90
[2021-09-02] MEDS: TAMSULOSIN HCL 0.4 MG CAPSULE PO SCH ×2 (08:21→17:00)
[2021-09-02] MEDS: AmLODIPine BESYLATE 2.5 MG TABLET PO SCH (08:21)
[2021-09-02] MEDS: NICOTINE 14 MG/24 HOUR PATCH TD SCH (08:22)
[2021-09-02] MEDS: LORazepam 2 MG TABLET PO PRN ×2 (16:00→21:48)
[2021-09-02 16:07] VITALS: BP 129/89
[2021-09-02] MEDS: OLANZapine 10 MG TABLET PO SCH (21:41)
[2021-09-02] MEDS: FINASTERIDE 5 MG TABLET PO SCH (21:41)
[2021-09-03 05:43] VITALS: BP 122/80
[2021-09-03 08:07] VITALS: BP 142/82
[2021-09-03 08:30] LABS: COVID AG,FIA SOURCE NASOPHARYNGEAL
[2021-09-03] MEDS: AmLODIPine BESYLATE 2.5 MG TABLET PO SCH (09:30)
[2021-09-03] MEDS: NICOTINE 14 MG/24 HOUR PATCH TD SCH (09:30)
[2021-09-03] MEDS: TAMSULOSIN HCL 0.4 MG CAPSULE PO SCH ×2 (09:30→17:12)
[2021-09-03 16:05] VITALS: BP 136/90
[2021-09-03] MEDS: OLANZapine 10 MG TABLET PO SCH (20:12)
[2021-09-03] MEDS: FINASTERIDE 5 MG TABLET PO SCH (20:13)
[2021-09-03] MEDS: LORazepam 2 MG TABLET PO PRN (20:18)
[2021-09-04 05:40] VITALS: BP 143/86
[2021-09-04 08:10] VITALS: BP 137/88
[2021-09-04] MEDS: NICOTINE 14 MG/24 HOUR PATCH TD SCH (09:26)
[2021-09-04] MEDS: AmLODIPine BESYLATE 2.5 MG TABLET PO SCH (09:26)
[2021-09-04] MEDS: TAMSULOSIN HCL 0.4 MG CAPSULE PO SCH (09:26)
[2021-09-04] MEDS ORDERED: OLAN10TA74 PO (13:02)
[2021-09-04 15:05] VITALS: BP 112/87
== END 2021-09-04 12:49 | disposition home or self-care (01) | DRG 885 ==
LOC: B2X 18:52
PROVIDERS: ADMIT Psychiatry & Neurology Child & Adolescent Psychiatry; ATTEND Psychiatry & Neurology Child & Adolescent Psychiatry
DX: F20.0 Paranoid schizophrenia (principal); F22 Delusional disorders; E78.5 Hyperlipidemia, unspecified; E66.9 Obesity, unspecified; F14.10 Cocaine abuse, uncomplicated; F15.10 Other stimulant abuse, uncomplicated; I10 Essential (primary) hypertension; N40.0 Benign prostatic hyperplasia without lower urinary tract symptoms; Z59.00 Homelessness unspecified; Z20.822 Contact with and (suspected) exposure to COVID-19; Z68.35 Body mass index [BMI] 35.0-35.9, adult
CPT/HCPCS: 80053; 80061; 80307; 81003; 83036; 84439; 84443; 85025

== ENCOUNTER 2024-05-27 15:54 | Emergency (ER) | payer MEDICARE, OTHER ==
[~2024-05-27] VITALS: Ht 180.3 cm; Wt 75.0 kg
[~2024-05-27 15:54] MED LIST changes: +OLAN10TA74 PO; -OLAN7.5T18 PO; -OLAN7.5T22 PO; -TAMS-13 PO; +TAMS0.4C94 PO
[2024-05-27 17:28] LABS: ANION GAP 6 mmol/L (8-16); CALCIUM, TOTAL 9.3 mg/dL (8.8-10.5); CARBON DIOXIDE 31 mmol/L (22-29); CHLORIDE 105 mmol/L (98-107); CREATININE 1.29 mg/dL (0.60-1.30); GLOMERULAR FILTR. RATE CALC 57 mL/min (>60); GLUCOSE,RANDOM 100 mg/dL (70-110); POTASSIUM 3.2 mmol/L (3.5-5.1); SODIUM SERUM 142 mmol/L (136-145); UREA NITROGEN, BLOOD 16 mg/dL (7-18)
[2024-05-27 17:29] LABS: BASOPHILS % (AUTO) 0.8 % (0.0-2.0); EOSINOPHILS % (AUTO) 1.3 % (1.0-6.0); HEMATOCRIT 41.3 % (41-53); HEMOGLOBIN 13.7 g/dL (13.5-17.5); LYMPHOCYTES # (AUTO) 2.3 K/uL (1.0-4.8); LYMPHOCYTES % (AUTO) 36.8 % (22.0-44.0); MEAN CORPUSCULAR HEMOGLOBIN 32.4 pg (26.0-34.0); MEAN CORPUSCULAR HGB CONC 33.1 G/dL (31.0-37.0); MEAN CORPUSCULAR VOLUME 98 fL (80-100); MONOCYTES # (AUTO) 0.6 K/uL (0.1-1.0); MONOCYTES % (AUTO) 8.8 % (2.0-9.0); NEUTROPHILS # (AUTO) 3.3 K/uL (1.8-7.7); NEUTROPHILS % (AUTO) 52.3 % (40.0-70.0); PLATELET COUNT (AUTO) 215 K/uL (150-450); RED BLOOD CELL COUNT(AUTO) 4.21 MIL/uL (4.50-5.90); RED CELL DISTRIBUTION WIDTH 14.9 % (11.5-14.5); WHITE BLOOD COUNT (AUTO) 6.3 K/uL (4.5-11.0)
[2024-05-27 17:34] LABS: ALANINE AMINOTRANSFERASE 36 U/L (12-78); ALBUMIN 3.4 g/dL (3.4-5.0); ALKALINE PHOSPHATASE 84 U/L (46-116); ASPARTATE AMINOTRANSFERASE 41 U/L (15-37); BILIRUBIN,TOTAL 0.4 mg/dL (0.1-1.0); TOTAL PROTEIN, SERUM 6.4 g/dL (6.4-8.2)
[2024-05-27 17:53] LABS: ALCOHOL, BLOOD (SERUM) < 3 mg/dL (0-10)
[2024-05-27] MEDS: POTASSIUM CHLORIDE 20 MEQ ER TABLET PO ONE (19:24)
[2024-05-27 19:26] LABS: COVID AG,FIA SOURCE NPH
[2024-05-27 19:30] LABS: APPEARANCE,URINE CLEAR (CLEAR); BILIRUBIN,URINE NEGATIVE (NEGATIVE); COLOR,URINE COLORLESS (YELLOW); GLUCOSE, URINE (UA) NEGATIVE (NEGATIVE); KETONES,URINE NEGATIVE (NEGATIVE); LEUKOCYTE ESTERASE ,URINE NEGATIVE (NEGATIVE); NITRATE,URINE NEGATIVE (NEGATIVE); OCCULT BLOOD,URINE NEGATIVE (NEGATIVE); PH,URINE 6.5 (5.0-8.0); PH,URINE DRUG SCREEN 6.5 (5.0-8.0); PROTEIN,URINE NEGATIVE (NEGATIVE); SPECIFIC GRAVITIY, URINE 1.005 (1.003-1.030); UROBILINOGEN,URINE <=1.0 mg/dL (<=1.0)
[2024-05-27 19:37] LABS: ALCOHOL, URINE DRUG SCREEN NEGATIVE (NEGATIVE); AMPHET/METH SCREEN,URINE NEGATIVE (NEGATIVE); BARBITURATE SCREEN, URINE NEGATIVE (NEGATIVE); BENZODIAZEPINES SCREEN,URINE NEGATIVE (NEGATIVE); CANNABINOID SCREEN,URINE NEGATIVE (NEGATIVE); COCAINE SCREEN,URINE NEGATIVE (NEGATIVE); METHADONE SCREEN, URINE NEGATIVE (NEGATIVE); OPIATE SCREEN,URINE NEGATIVE (NEGATIVE); PHENCYCLIDINE SCREEN,URINE NEGATIVE (NEGATIVE)
[2024-05-27 19:45] LABS: SARS-COV2 (COVID) ANTIGEN,FIA Negative (Negative)
[2024-05-27 21:57] VITALS: BP 119/87; PULSE 80; RESP 18; TEMP 98
== END 2024-05-27 22:03 | disposition still patient (30) ==
LOC: EMS 15:54
DX: F25.9 Schizoaffective disorder, unspecified (principal); E78.00 Pure hypercholesterolemia, unspecified; I10 Essential (primary) hypertension; F17.210 Nicotine dependence, cigarettes, uncomplicated; F15.90 Other stimulant use, unspecified, uncomplicated; Z20.822 Contact with and (suspected) exposure to COVID-19
CPT/HCPCS: 99283; 87426; 80053; 81003; 85025; 36415; 80307; G0480

== ENCOUNTER 2025-01-02 15:56 | Inpatient (IN) | payer MEDICARE, MEDICAID ==
[~2025-01-02] VITALS: Ht 175.3 cm; Wt 232.0 kg
[2025-01-02 11:30] VITALS: BP 122/82; PULSE 87; RESP 18; TEMP 98; O2SAT 100
[2025-01-02 16:45] LABS: PH,URINE DRUG SCREEN 5.5 (5.0-8.0)
[2025-01-02 16:46] LABS: BASOPHILS % (AUTO) 0.7 % (0.0-2.0); EOSINOPHILS % (AUTO) 2.6 % (1.0-6.0); HEMATOCRIT 41.7 % (41-53); HEMOGLOBIN 13.8 g/dL (13.5-17.5); LYMPHOCYTES # (AUTO) 1.5 K/uL (1.0-4.8); MEAN CORPUSCULAR HEMOGLOBIN 32.2 pg (26.0-34.0); MEAN CORPUSCULAR VOLUME 98 fL (80-100); MONOCYTES # (AUTO) 0.6 K/uL (0.1-1.0); MONOCYTES % (AUTO) 10.5 % (2.0-9.0); NEUTROPHILS # (AUTO) 3.1 K/uL (1.8-7.7); NEUTROPHILS % (AUTO) 57.2 % (40.0-70.0); PLATELET COUNT (AUTO) 240 K/uL (150-450); RED BLOOD CELL COUNT(AUTO) 4.28 MIL/uL (4.50-5.90); RED CELL DISTRIBUTION WIDTH 14.6 % (11.5-14.5); WHITE BLOOD COUNT (AUTO) 5.3 K/uL (4.5-11.0)
[2025-01-02] MEDS ORDERED: LIDO700A15 TP (16:47)
[2025-01-02] MEDS ORDERED: IBUP-1492 PO (16:47)
[2025-01-02] MEDS ORDERED: ACET-3385 PO (16:47)
[2025-01-02 16:55] LABS: ANION GAP 6 mmol/L (8-16); CALCIUM, TOTAL 8.8 mg/dL (8.8-10.5); CARBON DIOXIDE 31 mmol/L (22-29); CHLORIDE 108 mmol/L (98-107); CREATININE 1.09 mg/dL (0.60-1.30); GLOMERULAR FILTR. RATE CALC > 60 mL/min (>60); GLUCOSE,RANDOM 80 mg/dL (70-110); POTASSIUM 4.6 mmol/L (3.5-5.1); SODIUM SERUM 145 mmol/L (136-145); UREA NITROGEN, BLOOD 19 mg/dL (7-18)
[2025-01-02 16:59] LABS: COVID AG,FIA SOURCE NASAL SWAB
[2025-01-02 17:01] LABS: ALCOHOL, URINE DRUG SCREEN NEGATIVE (NEGATIVE); AMPHET/METH SCREEN,URINE POSITIVE (NEGATIVE); BARBITURATE SCREEN, URINE NEGATIVE (NEGATIVE); BENZODIAZEPINES SCREEN,URINE NEGATIVE (NEGATIVE); CANNABINOID SCREEN,URINE NEGATIVE (NEGATIVE); COCAINE SCREEN,URINE NEGATIVE (NEGATIVE); METHADONE SCREEN, URINE NEGATIVE (NEGATIVE); OPIATE SCREEN,URINE NEGATIVE (NEGATIVE); PHENCYCLIDINE SCREEN,URINE NEGATIVE (NEGATIVE)
[2025-01-02 17:02] LABS: ALCOHOL, BLOOD (SERUM) < 3 mg/dL (0-10)
[2025-01-02 17:20] LABS: SARS-COV2 (COVID) ANTIGEN,FIA Negative (Negative)
[2025-01-02] MEDS ORDERED: BENZTROPINE MESYLATE 1 MG/ML 2 ML VIAL IM ONE (17:30)
[2025-01-02] MEDS ORDERED: ZOLPIDEM TARTRATE 10 MG TABLET PO PRN (17:45)
[2025-01-02] MEDS ORDERED: HALOPERIDOL 5 MG TABLET PO PRN (17:45)
[2025-01-02] MEDS ORDERED: LORazepam 2 MG TABLET PO PRN (17:45)
[2025-01-02 19:22] LABS: APPEARANCE,URINE TURBID (CLEAR); BILIRUBIN,URINE NEGATIVE (NEGATIVE); COLOR,URINE LIGHT ORANGE (YELLOW); GLUCOSE, URINE (UA) NEGATIVE (NEGATIVE); KETONES,URINE NEGATIVE (NEGATIVE); LEUKOCYTE ESTERASE ,URINE NEGATIVE (NEGATIVE); NITRATE,URINE NEGATIVE (NEGATIVE); OCCULT BLOOD,URINE NEGATIVE (NEGATIVE); PH,URINE 5.5 (5.0-8.0); PROTEIN,URINE TRACE mg/dL (NEGATIVE); SPECIFIC GRAVITIY, URINE 1.028 (1.003-1.030)
[2025-01-03 06:37] LABS: ALANINE AMINOTRANSFERASE 21 U/L (12-78); ALBUMIN 2.6 g/dL (3.4-5.0); ALKALINE PHOSPHATASE 102 U/L (46-116); ANION GAP 6 mmol/L (8-16); ASPARTATE AMINOTRANSFERASE 16 U/L (15-37); BILIRUBIN,TOTAL 0.4 mg/dL (0.1-1.0); CALCIUM, TOTAL 8.5 mg/dL (8.8-10.5); CARBON DIOXIDE 28 mmol/L (22-29); CHLORIDE 109 mmol/L (98-107); CREATININE 1.11 mg/dL (0.60-1.30); GLOMERULAR FILTR. RATE CALC > 60 mL/min (>60); GLUCOSE,RANDOM 109 mg/dL (70-110); POTASSIUM 4.5 mmol/L (3.5-5.1); SODIUM SERUM 143 mmol/L (136-145); THYROID STIMULATING HORMONE 0.69 uIU/mL (0.36-3.74); TOTAL PROTEIN, SERUM 5.6 g/dL (6.4-8.2); UREA NITROGEN, BLOOD 18 mg/dL (7-18)
[2025-01-03] MEDS: OLANZapine 10 MG TABLET PO ONE (13:21)
[2025-01-03] MEDS: ACETAMINOPHEN 500 MG TABLET PO ONE (18:48)
[2025-01-04] MEDS: LORazepam 2 MG TABLET PO ONE (10:39)
[2025-01-04 17:34] VITALS: BP 142/95; PULSE 96; RESP 18; TEMP 97.7; O2SAT 99
[2025-01-04] MEDS ORDERED: -PHARMACY VACCINE NOTE- MISC ONE (18:45)
[2025-01-04] MEDS ORDERED: INFLUENZA VIRUS VACCINE TVS (6MO+) 2024-25/PF 45 MCG/0.5 ML SYRINGE IM. ONE (18:45)
[2025-01-04 22:00] VITALS: RESP 18
[2025-01-05] MEDS ORDERED: ONDANSETRON 4 MG TABLET PO PRN (07:15)
[2025-01-05] MEDS ORDERED: BENZOCAINE/MENTHOL LOZENGE PO PRN (07:15)
[2025-01-05] MEDS ORDERED: IBUPROFEN 600 MG TABLET PO PRN (07:15)
[2025-01-05] MEDS ORDERED: DOCUSATE SODIUM 100 MG CAPSULE PO PRN (07:15)
[2025-01-05] MEDS ORDERED: PETROLATUM,WHITE 28 GM JELLY TP PRN (07:15)
[2025-01-05] MEDS ORDERED: OMEPRAZOLE 20 MG CAPSULE PO PRN (07:15)
[2025-01-05] MEDS ORDERED: LOPERAMIDE HCL 2 MG CAPSULE PO PRN (07:15)
[2025-01-05] MEDS ORDERED: CloNIDine HCL 0.1 MG TABLET PO PRN (07:15)
[2025-01-05] MEDS ORDERED: BACITRACIN 28 GM OINTMENT TP PRN (07:15)
[2025-01-05] MEDS ORDERED: MAGNESIUM HYDROXIDE SUSPENSION 30 ML UDCUP PO PRN (07:15)
[2025-01-05] MEDS ORDERED: MAG HYDROX/ALUMINUM HYD/SIMETH ES 30 ML SUSPENSION UDCUP PO PRN (07:15)
[2025-01-05] MEDS: AmLODIPine BESYLATE 2.5 MG TABLET PO SCH (09:08)
[2025-01-05] MEDS: TAMSULOSIN HCL 0.4 MG CAPSULE PO SCH (09:08)
[2025-01-05] MEDS ORDERED: INFLUENZA VIRUS VACCINE TVS (6MO+) 2024-25/PF 45 MCG/0.5 ML SYRINGE IM. ONE (11:30)
[2025-01-05 12:30] VITALS: RESP 17
[2025-01-05] MEDS ORDERED: ChlorproMAZINE HCL 100 MG TABLET PO PRN (16:30)
[2025-01-05] MEDS ORDERED: ZOLPIDEM TARTRATE 5 MG TABLET PO PRN (16:30)
[2025-01-05] MEDS: LORazepam 0.5 MG TABLET PO PRN (17:12)
[2025-01-05] MEDS: FINASTERIDE 5 MG TABLET PO SCH (20:46)
[2025-01-05] MEDS: ChlorproMAZINE HCL 100 MG TABLET PO SCH (20:46)
[2025-01-05] MEDS: MELATONIN 5 MG TABLET PO SCH (20:46)
[2025-01-05] MEDS: OLANZapine 10 MG TABLET PO SCH (20:47)
[2025-01-05 23:22] VITALS: RESP 16
[2025-01-06 08:00] VITALS: BP 137/90; PULSE 87; RESP 18; TEMP 97.4; O2SAT 98
[2025-01-06 22:42] VITALS: RESP 18
[2025-01-07 10:12] VITALS: BP 133/83; PULSE 65; RESP 18; TEMP 97.7; O2SAT 98
[2025-01-07] MEDS ORDERED: GABAPENTIN 300 MG CAPSULE PO PRN (18:00)
[2025-01-07] MEDS: GABAPENTIN 100 MG CAPSULE PO SCH (21:49)
[2025-01-07 23:22] VITALS: BP 119/90; PULSE 100; RESP 19; TEMP 97.7; O2SAT 98
[2025-01-08] MEDS: DULoxetine HCL 20 MG CAPSULE PO SCH (09:01)
[2025-01-08] MEDS: NICOTINE 21 MG/24 HOUR PATCH TD SCH (09:01)
[2025-01-08] MEDS: NALTREXONE HCL 50 MG TABLET PO SCH (09:01)
[2025-01-08 10:02] VITALS: BP 133/90; PULSE 108; RESP 18; TEMP 98.8; O2SAT 98
[2025-01-08] MEDS: ACETAMINOPHEN 325 MG TABLET PO PRN (21:01)
[2025-01-08 23:20] VITALS: BP 134/72; PULSE 88; RESP 18; TEMP 97; O2SAT 100
[2025-01-09] MEDS: ALBUTEROL SULFATE HFA 90 MCG/PUFF 8 GM INHALER IH PRN (08:29)
[2025-01-09 09:58] VITALS: BP 136/77; PULSE 91; RESP 19; TEMP 97.9; O2SAT 100
[2025-01-09] MEDS ORDERED: MELA5TAB40 PO (19:28)
[2025-01-09] MEDS ORDERED: NALT50TA33 PO (19:28)
[2025-01-09] MEDS ORDERED: OLAN10TA74 PO (19:28)
[2025-01-09] MEDS ORDERED: DULO20CA71 PO (19:28)
[2025-01-09] MEDS ORDERED: GABA-1216 PO (19:28)
[2025-01-09 20:00] VITALS: BP 129/73; PULSE 72; RESP 18; TEMP 98; O2SAT 98
[2025-01-10 11:03] VITALS: BP 134/86; PULSE 84; RESP 18; TEMP 97.6; O2SAT 99
== END 2025-01-10 16:11 | disposition home or self-care (01) | DRG 885 ==
LOC: EMS 15:56 → 3EX 01-04 17:11
PROVIDERS: ADMIT Psychiatry & Neurology Psychiatry; ATTEND Psychiatry & Neurology Psychiatry
PROC: GZHZZZZ Group Psychotherapy (ICD-10-PCS; principal; 2025-01-05)
PROC: GZ51ZZZ Individual Psychotherapy, Behavioral (ICD-10-PCS; 2025-01-05)
DX: F25.0 Schizoaffective disorder, bipolar type (principal); C78.7 Secondary malignant neoplasm of liver and intrahepatic bile duct; I10 Essential (primary) hypertension; F17.210 Nicotine dependence, cigarettes, uncomplicated; Z20.822 Contact with and (suspected) exposure to COVID-19; F41.9 Anxiety disorder, unspecified; G47.00 Insomnia, unspecified; K59.00 Constipation, unspecified; F15.10 Other stimulant abuse, uncomplicated; F10.10 Alcohol abuse, uncomplicated; N40.0 Benign prostatic hyperplasia without lower urinary tract symptoms; Z85.840 Personal history of malignant neoplasm of eye; Z79.899 Other long term (current) drug therapy
CPT/HCPCS: 80048; 80053; 80307; 81003; 84443; 85025; 90686; 99285; G0378; G0480; J0515; J3535; 36415-L1; 36415-TC; G0008; Z7502; Z7610